=== PATIENT | male | born 1980 | race Caucasian/White ===

== ENCOUNTER 2021-08-22 20:47 | Emergency (ER) | payer MEDICAID, OTHER ==
[~2021-08-22] VITALS: Ht 188 cm; Wt 90.7 kg
[2021-08-22 20:55] VITALS: BP 117/65
--- NOTE | 2021-08-22 21:05 | NUR ---
PT TAKEN TO BED 11
--- NOTE | 2021-08-22 21:10 | NUR ---
PT IN [facility] WITH NAD NOTED. COMPREHENSIVE ASSESSMENT DONE. PT CLAIMS HE HAS BEEN WALKING AT LEAST 5 MILES PER DAY UPTO 15 MILES PER DAY FOR THE PAST 2.5 WEEKS. SLIGHT SWELLING AND REDNESS WITH SCATTERED RASH-LIKE AREAS NOTED TO LLE-LOWER ANTERIOR ASPECT. THERE IS CONCETRATED REDNESS NOTED WELL. NO DECREASE IN ROM NOTED. INCREASED PAIN WITH PALPATION AND WALKING FROM 2/10 TO 8/10. DENIES MED HX EXCEPT BIPOLAR AND ANXIETY. DOES NOT TAKE MEDICATIONS FOR EITHER FOR THE PAST 6 MONTHS. PENDING DISPO.
--- NOTE | 2021-08-22 21:11 | NUR ---
Dr. Tinsley examining patient.
--- NOTE | 2021-08-22 21:24 | NUR ---
X-RAY AT BEDSIDE
[2021-08-22] MEDS ORDERED: CEPH-588 PO (21:43)
[2021-08-22] MEDS ORDERED: SULF-59 PO (21:43)
--- NOTE | 2021-08-22 22:00 | NUR ---
Patient discharged with v/s stable. Written and verbal after care instructions given and explained. Patient alert, oriented and verbalized understanding of instructions. Ambulatory with steady gait. All questions addressed prior to discharge. ID band removed. Patient advised to follow up with PMD. Rx of KEFLEX AND BACTRIM DS given. Patient educated on indication of medication including possible reaction and side effects. Opportunity to ask questions provided and answered.
[2021-08-22 22:21] VITALS: BP 117/65
== END 2021-08-22 22:00 | disposition home or self-care (01) ==
LOC: MED 20:47
DX: L03.116 Cellulitis of left lower limb (principal); F15.10 Other stimulant abuse, uncomplicated; F14.10 Cocaine abuse, uncomplicated; F17.210 Nicotine dependence, cigarettes, uncomplicated
CPT/HCPCS: 73590; 99283; Q0092

== ENCOUNTER 2022-07-22 19:24 | Emergency (ER) | payer MEDICAID ==
[~2022-07-22] VITALS: Ht 188 cm; Wt 81.2 kg
[~2022-07-22 19:24] MED LIST: CEPH-588 PO; SULF-59 PO
[2022-07-22 19:50] VITALS: BP 116/67
--- NOTE | 2022-07-22 19:53 | NUR ---
TO LOBBY A/W BED AMBULATORY
--- NOTE | 2022-07-22 20:13 | NUR ---
TO BED #5 AMBULATORY
--- NOTE | 2022-07-22 20:17 | NUR ---
DR PALM EXAMINING PT
[2022-07-22] MEDS ORDERED: CEPH-588 PO (20:23)
[2022-07-22] MEDS ORDERED: SULF-59 PO (20:24)
--- NOTE | 2022-07-22 20:50 | NUR ---
Patient discharged with v/s stable. Written and verbal after care instructions given and explained. Patient alert, oriented and verbalized understanding of instructions. Ambulatory with steady gait. All questions addressed prior to discharge. ID band removed. Patient advised to follow up with PMD. Rx of KEFLEX AND BACTRIM given. Patient educated on indication of medication including possible reaction and side effects. Opportunity to ask questions provided and answered.
== END 2022-07-22 20:50 | disposition home or self-care (01) ==
LOC: MED 19:24
DX: L03.90 Cellulitis, unspecified (principal)
CPT/HCPCS: 99283

== ENCOUNTER 2023-07-17 12:45 | Emergency (ER) | payer MEDICAID ==
[~2023-07-17] VITALS: Ht 188 cm; Wt 77.1 kg
[2023-07-17] MEDS ORDERED: IBUP-1842 PO (12:54)
[2023-07-17] MEDS ORDERED: AMOX-999 PO (12:54)
[2023-07-17 13:06] VITALS: BP 90/60; PULSE 93; RESP 18; TEMP 98.3; O2SAT 98
[2023-07-17] MEDS ORDERED: OXYC5CAP26 PO (13:09)
== END 2023-07-17 13:51 | disposition home or self-care (01) ==
LOC: MED 12:45
DX: S90.811A Abrasion, right foot, initial encounter (principal); L03.115 Cellulitis of right lower limb; X58.XXXA Exposure to other specified factors, initial encounter; Y93.89 Activity, other specified; Y92.89 Other specified places as the place of occurrence of the external cause; Y99.8 Other external cause status
CPT/HCPCS: 99283